=== PATIENT | male | born 1945 | race Hispanic/Latino ===

== ENCOUNTER 2021-10-10 05:53 | Day surgery (SDC) | payer OTHER ==
[2021-10-10] MEDS ORDERED: LIDOCAINE 1% MPF 5 ML VIAL ONE (06:11)
[2021-10-10] MEDS ORDERED: FENTANYL CITR 100 MCG/2 ML ONE (06:11)
[2021-10-10] MEDS ORDERED: NS 0.9% VIAL 10 ML ONE ×2 (06:11→08:13)
[2021-10-10] MEDS ORDERED: dexAMETHasone 10 MG/ML VIAL ONE ×2 (06:11→07:21)
[2021-10-10] MEDS ORDERED: ROPLVACAINE HCL 40 ML ONE (06:11)
[2021-10-10] MEDS ORDERED: MIDAZOLAM HCL 2 MG/2 ML INJ ONE (06:11)
[2021-10-10] MEDS ORDERED: Ringers Lactate 1,000 ML IV ONE ×2 (06:13→08:23)
[2021-10-10] MEDS ORDERED: CEFAZOLIN/NS 1gm 1 GM/50 ML BAG ONE (06:13)
[2021-10-10] MEDS ORDERED: EPINEPHRINE/PF 1 MG/ML AMP ONE (06:57)
[2021-10-10] MEDS ORDERED: ONDANSETRON 4 MG/2 ML VIAL ONE (07:21)
[2021-10-10] MEDS ORDERED: propofoL 200 MG/20 ML VIAL IV ONE (07:21)
[2021-10-10] MEDS ORDERED: LIDOCAINE 2% MPF 5 ML VIAL ONE (07:21)
[2021-10-10] MEDS ORDERED: KETOROLAC 30 MG/ML INJ ONE (07:21)
[2021-10-10] MEDS ORDERED: ROCURONIUM 50 MG/5 ML VIAL IV ONE ×2 (07:21→08:34)
[2021-10-10] MEDS ORDERED: Phenylephrine HCl 10 MG/ML 1 ML VIAL ONE (08:13)
[2021-10-10] MEDS ORDERED: GLYCOPYRROLATE 0.2 MG/ML SYR ONE (09:20)
[2021-10-10] MEDS ORDERED: NEOSTIGMINE 1 MG/ML -5 ML ONE (09:21)
--- NOTE | 2021-10-10 09:48 | P.BOP ---
Preoperative diagnosis: left shoulder rotator cuff tear, biceps tendinitis, impingement syndrome Postoperative diagnosis: same Primary procedure: left shoulder arthroscopic rotator cuff repair Secondary procedure: left shoulder arthroscopic biceps tenotomy Other procedure(s): left shoulder arthroscopic subacromial decompression Estimated blood loss: 5 cc Specimen: none Findings: see dictation Anesthesia: General Complications: None Implants: 1- 5.5 mm Arthrex corkscrew, 2 - 4.75 mm Arthrex Swivelock Fluids & blood products: per anesthesia record Transferred to: Recovery Room Condition: Good
--- NOTE | 2021-10-10 10:34 | RAD REPORT ---
EXAM DESCRIPTION: RAD - Shoulder 1 View - 10/10/2021 10:18 am FINDINGS: Single portable view of the left shoulder was obtained. Air is present in the soft tissues presumably part of the surgical procedure. No fracture or dislocation. No retained surgical hardware or unexpected soft tissue finding.
[2021-10-10] MEDS ORDERED: HYDROCODONE/APAP 7.5/325 MG TAB ONE (10:47)
[2021-10-10 11:51] VITALS: BP 137/76; TEMP 97.3; O2SAT 97
--- NOTE | 2021-10-10 22:42 | OP ---
Date of Procedure: 10/10/2021 Surgeon: Tello Degroot MD Preoperative Diagnoses: 1.Left shoulder rotator cuff tear. 2.Left shoulder bicipital tenosynovitis. 3.Left shoulder impingement syndrome. Postoperative Diagnoses: 1.Left shoulder rotator cuff tear. 2.Left shoulder bicipital tenosynovitis. 3.Left shoulder impingement syndrome. Procedures Performed: 1.Left shoulder arthroscopic rotator cuff repair. 2.Left shoulder arthroscopic biceps tenotomy. 3.Left shoulder arthroscopic subacromial decompression. Anesthesia: General LMA. Anesthesia: General endotracheal. Fluids: Per Anesthesia record. Ebl: 5 cc. Complications: None. Implants: 1.One 5.5 mm Arthrex Corkscrew. 2.Two 4.75 mm Arthrex SwiveLock. Indications For Procedure: Anjum is a 76-year-old male who presented to my clinic with signs and sy mptoms and MRI findings consistent with a left shoulder rotator cuff tear. I discussed with the hannah ent at length risks and benefits associated with operative and nonoperative treatment. He expressed understanding and elected to proceed with operative treatment. Description Of Procedure: After informed consent was obtained, the [facility] The left upper extremity was marked. The patient was then brought back to the PACU whe re he underwent an interscalene block to the left upper extremity performed by Anesthesia. He was th en brought back to the operating room, transferred to the operating table in supine fashion, placed u nder general endotracheal anesthesia. He was then placed in the beach chair position with the extrem ities well padded. A Sotelo was placed as well. The left upper extremity was then prepped and draped in usual sterile fashion. A time-out was initiated. The correct patient and procedure were confirm ed and identified. The patient did receive a preoperative prophylactic antibiotics. A spinal needle was then used to get into the shoulder joint via the posterior portal position. 30 cc of normal jaison ine was then injected into the glenohumeral joint to distend the capsule. A stab incision was made p osteriorly to create a posterior portal using an 11 blade and an arthroscope was brought in via the p osterior portal position. Under direct visualization, an anterior portal and cannula were placed and a diagnostic arthroscopy was performed. The patient was noted to have significant fraying at the bi ceps tendon anchor. Biceps tenotomy was performed using a meniscal biter and arthroscopic shaver to debride the biceps anchor stump. There was no significant chondral pathology noted on the humeral he ad or glenoid. There was some fraying of the superior labrum which was debrided using an arthroscopi c shaver. The anterior-posterior labrum was found to be stable to probe. There were no loose bodies found within the axillary pouch. The patient is known to have full-thickness tear anterior aspect o f the supraspinatus. The spinal needle was introduced and a lateral portal was created. The obturat or was brought into the glenohumeral joint consistent with full-thickness tear. The undersurface of the rotator cuff tear was debrided using the arthroscopic shaver and the greater tuberosity was debri ded using an arthroscopic shaver to debride bleeding bony bed. Next, the arthroscope was brought int o the subacromial space and bursectomy was performed. A stab incision was made just lateral to the a cromion and a single double-loaded 5.5 mm Arthrex Corkscrew anchor was then placed just lateral to th e articular surface. The suture was then passed in an anterior to posterior fashion and tied in a ho rizontal mattress fashion with good overall reduction repair of the supraspinatus back to the greater tuberosity. The suture limbs were then placed in a crisscross fashion, the 2 lateral SwiveLock anch ors were placed to increase surface area of the repair of the greater tuberosity. The suture limbs w ere then cut and removed. The remaining sutures were removed. The undersurface of the acromion was then debrided using the arthroscopic shaver. There was significant fraying of the coracoacromial lig ament as well as some spurring of the undersurface of the acromion and an acromioplasty was performed using the arthroscopic bur to complete the subacromial decompression. Arthroscopic instruments were then removed without complication. The wound was then irrigated thoroughly with normal saline and w as approximated using 2-0 Vicryl. Portals were approximated using a 3-0 Vicryl. Sterile dressings w ere applied. The patient was placed in a shoulder immobilizer, awakened, and transferred to PACU in stable condition. Postoperative Plan: The patient will be nonweightbearing to his left upper extremity. He will begin physical therapy per medium rotator cuff repair protocol 4 weeks postop. CV/MODL Voice ID: [id number] Report ID: [id number]
== END 2021-10-10 11:25 | disposition home or self-care (01) ==
LOC: OR 05:53
PROVIDERS: ATTEND Orthopaedic Surgery Sports Medicine
PROC: 0RNK4ZZ Release Left Shoulder Joint, Percutaneous Endoscopic Approach (ICD-10-PCS; 2021-10-10)
PROC: 0LQ24ZZ Repair Left Shoulder Tendon, Percutaneous Endoscopic Approach (ICD-10-PCS; principal; 2021-10-10 07:30)
DX: M25.512 Pain in left shoulder (principal); M75.102 Unspecified rotator cuff tear or rupture of left shoulder, not specified as traumatic; M75.22 Bicipital tendinitis, left shoulder; M75.42 Impingement syndrome of left shoulder; Z20.822 Contact with and (suspected) exposure to COVID-19
CPT/HCPCS: 29827; 29826; 36415; 85730; 73020; U0002; J2704; J0171; J2370; J2250; J3010; J1100 ×2; J2795; J2710; J0690; J7120 ×2; J2405